=== PATIENT | male | born 1960 ===

== ENCOUNTER 2017-05-18 06:26 | Day surgery (SDC) | payer OTHER ==
[2017-05-13 06:31] VITALS: BMI 27.6
[2017-05-18] MEDS ORDERED: Lidocaine 2% Inj (20ml) ONE (06:37)
[2017-05-18] MEDS ORDERED: DiphenhydrAMINE 50 mg/ml Inj ONE (06:38)
[2017-05-18] MEDS ORDERED: Phenylephrine 10 mg/ml Inj ONE (06:38)
[2017-05-18] MEDS ORDERED: Iodixanol 320 MG/ML 200 ML BOTTLE IV ONE (06:39)
[2017-05-18] MEDS ORDERED: Iohexol 350mgl/ml 50 ML ONE (06:39)
[2017-05-18] MEDS ORDERED: Nitroglycerin 50mg in D5W 0 MG/0 ML BOTTLE IV ONE (06:39)
[2017-05-18] MEDS ORDERED: Iodixanol 320 MG/ML 100 ML BOTTLE IV ONE (06:39)
[2017-05-18] MEDS ORDERED: Midazolam 2 MG/2 ML VIAL ONE ×2 (06:48→07:32)
[2017-05-18 07:18] LABS: BASO # 0.03 K/mm3 (0.0-2.0); BASO % 0.4 % (0.0-3.0); EOS # 0.1 (0.0-0.7); EOS % 1.5 % (1.5-5.0); GRAN # 4.49 (1.4-6.5); GRAN % 60.3 % (50.0-68.0); HEMATOCRIT 42.5 % (42.0-52.0); LYMPH # 2.1 (1.2-3.4); LYMPH % 28.3 % (22.0-35.0); MEAN CELL VOLUME 88.9 fl (80.0-105.0); MEAN CORPUSCULAR HEMOGLOBIN 30.5 pg (25.0-35.0); MEAN CORPUSCULAR HGB CONC 34.4 g/dl (31.0-37.0); MEAN PLATELET VOLUME 10.6 fl (7.0-11.0); MONO # 0.7 (0.1-0.6); MONO % 9.5 % (1.0-6.0); RED CELL DISTRIBUTION WIDTH 13.6 % (11.5-14.5); WHITE BLOOD COUNT 7.5 10^3/ul (4.5-11.0)
[2017-05-18 07:26] LABS: INR 0.96 (0.93-1.08); PARTIAL THROMBOPLASTIN TIME 27.7 Seconds (25.1-36.5)
[2017-05-18 07:30] LABS: BLOOD UREA NITROGEN 13 mg/dL (7-21); CARBON DIOXIDE 28 mmol/L (21-33); CHLORIDE 108 mmol/L (98-107); CHOLESTEROL 155 mg/dL (130-200); GFR AFRICAN-AMERICAN > 60; GLUCOSE,RANDOM 109 mg/dL (70-110); SODIUM 143 mmol/L (132-148)
[2017-05-18] MEDS ORDERED: Sodium Chloride 0.9% 1,000 ML IV SCH (09:00)
[2017-05-18 09:11] VITALS: TEMP 98.1
--- NOTE | 2017-05-18 10:06 | CARDCATH ---
PROCEDURE DATE: 05/18/2017 HISTORY: The patient is a 56-year-old male who presents with an abnormal stress test. He was found to have an cardiomyopathy on stress test with evidence of ischemic area in the apex. The patient's past medical history includes a history of alcoholism, which was treated and he is refrained from alcohol for the past 10 years. In addition, the patient has suffered from lung CA as well as prostate CA, has undergone chemotherapy. Because of this cardiomyopathy and an abnormal stress test, a cardiac catheterization was recommended. PROCEDURE: Left heart catheterization with coronary angiography and left ventriculogram. The right femoral artery was cannulated with 6-[place] sheath. There were no complications. I performed moderate sedation which included the presence of an independent trained observer that assisted in monitoring the patient's level of consciousness and physiologic status. After administration of Versed and fentanyl, my intra service time was 15 minutes. The findings on catheterization revealed a left ventricle that was dilated and diffusely hypokinetic with an estimated ejection fraction of 40%. There was no mitral regurgitation. His coronary anatomy revealed a right dominant circulation. The RCA was unremarkable. The left main artery was free of significant disease. The LAD and diagonal vessels revealed intimal irregularities without significant stenoses. The circumflex artery and obtuse marginal branches were free of significant disease. Angio-Seal was used to close the femoral artery site. The patient tolerated the procedure well. In summary, the procedure revealed a cardiomyopathy with an EF of 40%. His coronary artery was unremarkable. Given these findings, the patient's cardiomyopathy is not of ischemic origin. His previous alcoholism and possible chemotherapy may be the cause of his depressed LV function. Given these findings, the patient should be on an ARB with afterload reduction. I have discussed with the patient's family about his need for an aerobic exercise program. Vel Abdalla MD
[2017-05-18 13:18] VITALS: O2SAT 98
[2017-05-18 14:00] VITALS: BP 132/70; PULSE 82; RESP 18
--- NOTE | 2017-05-18 23:17 | CARD ---
APPROVED REPORT EKG Measurement Heart [id number] <Conclusion> Sinus rhythm Right bundle branch block Left anterior fascicular block Bifascicular block Minimal voltage criteria for LVH, may be normal variant Abnormal ECG
== END 2017-05-18 14:15 | disposition home or self-care (01) ==
LOC: CATH 06:26
PROVIDERS: ATTEND Internal Medicine Cardiovascular Disease
DX: I42.9 Cardiomyopathy, unspecified (principal); C34.90 Malignant neoplasm of unspecified part of unspecified bronchus or lung; C61 Malignant neoplasm of prostate
CPT/HCPCS: 36415; 80048; 80061; 85025; 85610; 85730; 86850; 86900; 93005; 93458; 99152; 99153; C1760; C1769; C2629; J1200; J1644; J2250; J2930; J3010; J7030; J7040; Q9967